=== PATIENT | male | born 1975 | race Caucasian/White ===

== ENCOUNTER → 2016-05-22 | Outpatient (CLI) | payer OTHER ==
[2016-03-14 08:23] VITALS: BP 148/92
[~2016-05-22] MED LIST: FURO20TA3 PO; HYDR12.58 PO
--- NOTE | 2016-05-22 12:04 | KCIC ---
PROCEDURE Thoracic spine MRI without contrast. HISTORY Left lower and upper extremity weakness. TECHNIQUE Multiplanar and multi sequence magnetic resonance imaging of the thoracic spine was performed without contrast. COMPARISON Correlation is made with a lumbar spine MRI dated 01/14/2016. FINDINGS There is no significant listhesis. There is minimal decreased anterior vertebral body height at T8, chronic and likely degenerative in etiology. There is a left superior endplate depression secondary to a Schmorl's node at T4. There is a moderate left greater than right wedge compression deformity with left superior endplate Schmorl's node at T11, chronic in etiology. There is degenerative endplate remodeling at all levels. There are multiple additional endplate Schmorl's nodes and there is disc desiccation. No spinal cord lesion is seen. The conus terminates at L1. At T4-T5, there is a left paracentral disc protrusion. There is mild effacement of the left ventral thecal sac. There is no stenosis. At T5-T6, there is a left paracentral disc protrusion. There is mild effacement of the left ventral thecal sac and slight deformation of the left ventral aspect of the spinal cord. There is no stenosis. At T7-T8, there is a disc bulge which effaces the ventral thecal sac and flattens the ventral aspect of the spinal cord. There is no stenosis. At T10-T11, there is a disc bulge which mildly effaces the ventral aspect of the thecal sac without significant central canal stenosis. There are additional disc bulges without significant stenosis at the remainder of the thoracic vertebral levels. There are disc bulges and protrusions at multiple cervical vertebral levels, predominately C5-C6. This results in stenosis and is incompletely evaluated on the current exam. There also disc bulges and protrusions at the lumbar vertebral levels which results in stenosis, better characterized on the lumbar spine MRI dated 01/14/2016. IMPRESSION 1. 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 This is described in detail above. 2. Multilevel degenerative change within the cervical and lumbar spine, better characterized on MRIs dated 03/08/2016 and 01/14/2016. 3. Moderate chronic wedge compression deformity with superior endplate Schmorl's node at T11, minimal chronic wedging of T8 which is likely developmental or degenerative, and minimal chronic superior endplate depression at T4. Electronically signed by: Maddy Garza (May 22, 2016 12:03:05)
== END | disposition home or self-care (01) ==
LOC: KCIC MRI 10:35
PROVIDERS: ATTEND Neurological Surgery
DX: M48.04 Spinal stenosis, thoracic region (principal); M47.814 Spondylosis without myelopathy or radiculopathy, thoracic region
CPT/HCPCS: 72146